=== PATIENT | female | born 1960 | race Caucasian/White ===

== ENCOUNTER 2021-09-06 09:27 | Emergency (ER) | payer BC, OTHER ==
[2021-09-06 11:09] VITALS: BP 153/87; PULSE 66; TEMP 98.5; BMI 21.2
[2021-09-07 16:11] LABS: SARS-CoV-2 NAA Not Detected (Not Detected)
== END 2021-09-06 11:41 | disposition home or self-care (01) ==
LOC: FER 09:27
DX: R50.9 Fever, unspecified (principal); R05.9 Cough, unspecified; Z11.52 Encounter for screening for COVID-19
CPT/HCPCS: 99283-25; C9803; U0003; U0005